=== PATIENT | female | born 2000 | race American Indian/Alaskan Native ===

== ENCOUNTER 2019-03-15 18:01 | Inpatient (IN) | payer OTHER ==
[~2019-03-15] VITALS: Ht 157.5 cm; Wt 46.3 kg
[2019-03-15] MEDS ORDERED: PRENATABS RX T1 EACH PO (18:11)
== END 2019-03-17 13:29 | disposition home or self-care (01) | DRG 833 ==
LOC: OBS/DEL 18:01 → LDR 03-16 13:26
PROVIDERS: ADMIT Obstetrics & Gynecology Obstetrics
PROC: BY4CZZZ Ultrasonography of Second Trimester, Single Fetus (ICD-10-PCS; principal; 2019-03-16)
PROC: 4A1HXCZ Monitoring of Products of Conception, Cardiac Rate, External Approach (ICD-10-PCS; 2019-03-16)
DX: O60.02 Preterm labor without delivery, second trimester (principal); Z34.02 Encounter for supervision of normal first pregnancy, second trimester

== ENCOUNTER → 2019-06-07 | Outpatient (CLI) | payer OTHER ==
[~2019-06-07] MED LIST: PRENATABS RX T1 EACH PO
== END | disposition home or self-care (01) ==
LOC: PRENATAL 10:22
DX: O35.3XX0 Maternal care for (suspected) damage to fetus from viral disease in mother, not applicable or unspecified (principal); O35.0XX0 Maternal care for (suspected) central nervous system malformation in fetus, not applicable or unspecified

== ENCOUNTER 2019-07-02 18:24 | Inpatient (IN) | payer OTHER ==
[~2019-07-02] VITALS: Ht 157.5 cm; Wt 57.2 kg
== END 2019-07-06 14:04 | disposition home or self-care (01) | DRG 788 ==
LOC: EDBD 18:24 → OBS/DEL 18:24 → LDR 07-03 14:32 → OBS/DEL 07-03 14:32 → OB/GYN 07-03 17:03
PROVIDERS: ADMIT Obstetrics & Gynecology Obstetrics
PROC: 4A1HXCZ Monitoring of Products of Conception, Cardiac Rate, External Approach (ICD-10-PCS; 2019-07-03)
PROC: 10D00Z1 Extraction of Products of Conception, Low, Open Approach (ICD-10-PCS; principal; 2019-07-04)
DX: O82 Encounter for cesarean delivery without indication (principal); Z3A.38 38 weeks gestation of pregnancy; Z37.0 Single live birth